=== PATIENT | female | born 1970 | race African-American/Black ===

== ENCOUNTER 2018-08-17 08:30 | Day surgery (SDC) | payer OTHER ==
[~2018-08-17 08:30] MED LIST: CEFAZOLIN 2 GM/50 ML (PMX) 50 ML IVPB
[2018-08-17] MEDS ORDERED: LACTATED RINGER'S 1,000 ML IV (10:00)
[2018-08-17] MEDS ORDERED: BUPIVACAINE 0.5% (SDV) 30 ML INJ (10:37)
[2018-08-17] MEDS ORDERED: LABETALOL HCL 20MG INJ IV (11:30)
[2018-08-17] MEDS ORDERED: MEPERIDINE 25 MG INJ IV (11:30)
[2018-08-17] MEDS ORDERED: HYDROmorphONE 1 MG/5 ML IV SYRINGE IV ×3 (11:30)
[2018-08-17] MEDS ORDERED: TRIMETHOBENZAMIDE 100 MG/ML VIAL IM (11:30)
[2018-08-17] MEDS ORDERED: MIDAZOLAM 1 MG/ML 2 ML INJ IV (11:30)
[2018-08-17] MEDS ORDERED: ALBUTEROL 0.083% (NEB) 2.5 MG/3 ML AMP HHN (11:30)
[2018-08-17] MEDS ORDERED: IPRATROPIUM (NEB) 0.5 MG/2.5 ML AMP HHN (11:30)
[2018-08-17] MEDS ORDERED: DIPHENHYDRAMINE 50 MG INJ IV (11:30)
[2018-08-17] MEDS ORDERED: EPHEDrine 25 MG/5 ML SYG IV (11:30)
[2018-08-17] MEDS ORDERED: hydrALAzine 20 MG INJ IV (11:30)
[2018-08-17] MEDS ORDERED: ONDANSETRON 4 MG INJ IV (11:30)
[2018-08-17] MEDS ORDERED: FENTAnyl 50 MCG/ML VIAL IV ×3 (11:30)
[2018-08-17] MEDS ORDERED: OXYCODONE/ACETAMINOPHEN (5/325) TAB PO (11:30)
[2018-08-17] MEDS ORDERED: PROPOFOL 20 ML (11:35)
[2018-08-17] MEDS ORDERED: CEFAZOLIN 1 GM INJ (11:35)
[2018-08-17] MEDS ORDERED: LIDOCAINE 100 MG SYRINGE (11:35)
[2018-08-17] MEDS ORDERED: ONDANSETRON 4 MG INJ (11:36)
[2018-08-17] MEDS ORDERED: MIDAZOLAM 1 MG/ML 2 ML INJ (11:36)
[2018-08-17] MEDS ORDERED: FENTAnyl 50 MCG/ML VIAL (11:36)
[2018-08-17] MEDS: BUPIVACAINE 0.5%/EPI (SDV) 30 ML INJ (12:14)
[2018-08-17] MEDS: POLYMYXIN/BACITRACIN 1L IRRIG (12:14)
[2018-08-17] MEDS: OXYCODONE/ACETAMINOPHEN (5/325) TAB PO (14:08)
== END 2018-08-17 14:45 | disposition home or self-care (01) ==
LOC: SDS 08:30
DX: D16.32 Benign neoplasm of short bones of left lower limb (principal); D16.31 Benign neoplasm of short bones of right lower limb; L57.0 Actinic keratosis; I10 Essential (primary) hypertension
CPT/HCPCS: 28124; 73600; 73620; 88304; 88311